=== PATIENT | female | born 1995 | race Caucasian/White ===

== ENCOUNTER 2021-07-22 08:38 | Emergency (ER) | payer OTHER ==
[~2021-07-22] VITALS: Ht 157.5 cm; Wt 59.0 kg
--- NOTE | 2021-07-22 08:50 | NUR ---
CHAPERONED WITH MSE
[2021-07-22 09:01] LABS: *BILIRUBIN,URIN NEGATIVE (NEGATIVE); *BLOOD, URINE NEGATIVE (NEGATIVE); *CLARITY,URINE SLIGHTLY CLOUDY (CLEAR); *COLOR,URINE YELLOW (YELLOW); *KETONES,URINE NEGATIVE (NEGATIVE); *UROBILINOGEN,URINE 0.2 E.U./dl (NORMAL); LEUKOCYTE ESTERASE ,URINE TRACE (NEGATIVE); NITRITE, URINE NEGATIVE (NEGATIVE); PH,URINE 5.5 (5.0-8.0); UGLUCOSE NEGATIVE (NEGATIVE)
[2021-07-22 09:02] LABS: *URINE HCG, QUAL POSITIVE (NEGATIVE)
[2021-07-22 10:02] LABS: HEMATOCRIT 31.5 % (31.2-41.9); MEAN CORPUSCULAR VOLUME 84.6 fL (75.5-95.3); PLATELET COUNT (AUTO) 326 K/uL (179-408)
[2021-07-22 10:14] LABS: CREATININE 0.6 mg/dL (0.6-1.3); POTASSIUM 4.1 mmol/L (3.5-5.1)
[2021-07-22 10:22] LABS: BILIRUBIN,DIRECT 0.1 mg/dL (0.0-0.2); BILIRUBIN,TOTAL 0.3 mg/dL (0.2-1.0)
[2021-07-22] MEDS ORDERED: NITR100C11 PO (11:16)
[2021-07-22 11:54] VITALS: BP 111/61
--- NOTE | 2021-07-22 11:54 | NUR ---
Patient discharged to home in stable condition. Written and verbal after care instructions given. Patient verbalizes understanding of instructions. Stressed follow up or return to ER for worsening s/s.
[2021-07-22 16:25] LABS: SQUAMOUS EPITHELIAL CELL,UR FEW /HPF (NONE SEEN); URINE AMORPHOUS PHOSPHATES MANY /HPF
== END 2021-07-22 11:55 | disposition home or self-care (01) ==
LOC: ER 08:38
DX: O23.41 Unspecified infection of urinary tract in pregnancy, first trimester (principal); N39.0 Urinary tract infection, site not specified; Z3A.11 11 weeks gestation of pregnancy; R10.13 Epigastric pain; O99.611 Diseases of the digestive system complicating pregnancy, first trimester; K82.0 Obstruction of gallbladder
CPT/HCPCS: 36415; 76856; 83690; 84703; 85025; 87086; A4663